=== PATIENT | female | born 1990 | race African-American/Black ===

== ENCOUNTER 2020-03-27 11:29 | Emergency (ER) | payer BC ==
[~2020-03-27] VITALS: Ht 172.7 cm; Wt 114.3 kg
[2020-03-27] MEDS ORDERED: MOBIC15 MG PO (14:13)
[2020-03-27 14:31] VITALS: BP 117/72
== END 2020-03-27 14:35 | disposition home or self-care (01) ==
LOC: ER 11:29
DX: J35.1 Hypertrophy of tonsils (principal); R04.2 Hemoptysis; R11.0 Nausea; F17.210 Nicotine dependence, cigarettes, uncomplicated; Z88.0 Allergy status to penicillin

== ENCOUNTER 2020-05-31 04:18 | Emergency (ER) | payer BC ==
[~2020-05-31] VITALS: Ht 172.7 cm; Wt 120.2 kg
[~2020-05-31 04:18] MED LIST: MOBIC15 MG PO
[2020-05-31 04:56] LABS: ABSOLUTE NEUTROPHILS 3.6 thou/uL (1.4-8.2); BASOPHILS 0.4 % (0.0-2.0); EOSINOPHILS 1.9 % (0.0-3.0); HEMATOCRIT 38.2 % (37.0-47.0); LYMPHOCYTES 37.9 % (24.0-44.0); MCH 29.1 pg (26.0-34.0); MCHC 34.1 g/dL (28.0-37.0); MCV 85.3 fL (80.0-100.0); MONOCYTES 6.5 % (1.0-8.0); PLATELET COUNT 294 thou/uL (150-400); POLYS 53.3 % (36.0-66.0); RBC 4.48 mil/uL (4.20-5.00); RDW 14.3 % (10.5-14.5); WBC 6.8 thou/uL (4.0-11.0)
[2020-05-31 05:02] LABS: ANION GAP 11 mmol/L (7-16); BUN 13 mg/dL (7-18); CALCIUM 8.9 mg/dL (8.5-10.1); CHLORIDE 101 mmol/L (98-107); CO2 23 mmol/L (21-32); CREATININE 0.8 mg/dL (0.6-1.0); GLUCOSE 112 mg/dL (74-106); POTASSIUM 3.7 mmol/L (3.5-5.1); SODIUM 135 mmol/L (136-145)
[2020-05-31 05:10] LABS: ALBUMIN 3.6 g/dL (3.4-5.0); DIRECT BILIRUBIN < 0.1 mg/dL (<0.1-0.2); LIPASE 120 U/L (73-393); SGOT 46 U/L (15-37); SGPT 67 U/L (30-65); TOTAL BILIRUBIN 0.3 mg/dL (0.2-1.0); TROPONIN-I <0.06 ng/mL (<0.06)
[2020-05-31] MEDS ORDERED: NAPROSYN500 MG PO (06:21)
[2020-05-31] MEDS ORDERED: ULTRAM 50MG TAB50 MG PO (06:21)
[2020-05-31 06:31] VITALS: BP 113/71
--- NOTE | 2020-05-31 08:28 | EKG ---
[facility] [place] [address] ELECTROCARDIOGRAM REPORT Name: YUKI CRUZ Room #: DEP [facility]#: [id number] Admission: 05/31/20 Attend Phys: Discharge: 05/31/20 Date of : 88 Report #: [id number] THIS REPORT FOR: cc: FAM - No family physician/PCP FAM - No family physician/PCP Srinivas Smith MD [facility] THIS REPORT FOR: //name// [facility] ED Test Date: 2020-05-31 Test Time: 04:30:12 Pat Name: YUKI CRUZ Department: Room: Gender: F [facility] Registered Nurse: [facility] : 1990 Requested By: Alex Drew Order Number: [id number] MD: Srinivas Smith Measurements Intervals [place] Rate: 68 P: -10 NE: 188 QRS: 54 QRSD: 84 T: 33 QT: 396 QTc: 422 Interpretive Statements Sinus rhythm No significant abnormality No previous ECG available for comparison Electronically Signed On 05-31-2020 8:28:16 CDT by Srinivas Smith [email or web address] <ELECTRONICALLY SIGNED> By: Srinivas Smith MD, [facility] 05/31/2028 9 Srinivas Smith MD, [facility] /EPI
== END 2020-05-31 06:32 | disposition home or self-care (01) ==
LOC: ER 04:18
PROVIDERS: Emergency Medicine
DX: R07.89 Other chest pain (principal); R74.0 Nonspecific elevation of levels of transaminase and lactic acid dehydrogenase [LDH]; F17.210 Nicotine dependence, cigarettes, uncomplicated; Z88.0 Allergy status to penicillin